=== PATIENT | male | born 1950 | race Asian ===

== ENCOUNTER 2020-02-11 12:43 | Day surgery (SDC) | payer BC, SELFPAY ==
--- NOTE | 2020-02-08 13:28 | P.CONAN_ITS ---
Documented by User: Dunia Adam 02/08/20 13:34 HPI - Anesthesia Eval Consult details Narrative: 70yo M for Colonoscopy: screening [facility] Past Medical History Medical History (Updated 02/11/20 @ 13:34 by Letty Mcmillan, RN) Asthma Diabetes mellitus Elevated cholesterol Environmental allergies Fatty liver Liver hemangioma Renal stones Surgical History Surgical History (Updated 02/11/20 @ 13:33 by Letty Mcmillan, RN) H/O oral surgery Hx of colonoscopy Social History Social History Smoking Status: Never smoker Second Hand Smoke Exposure: No Use of substances other than those prescribed or required for medical reasons: No Advance Directives: No Advance Directives Information Provided: Yes Advance Directives on File: No Meds Allergies Allergy/AdvReac Type Severity Reaction Status Date / Time aspirin Allergy Hives Verified 02/11/20 13:21 Sulfa (Sulfonamide Allergy unknown Verified 02/08/20 15:00 Antibiotics) Home Medications Medication Instructions Recorded Confirmed Type aspirin [Aspir-Low] 81 mg PO DAILY 02/08/20 02/08/20 History atorvastatin 1 tab PO DAILY 02/08/20 02/08/20 History metformin 1 tab PO DAILY 02/08/20 02/08/20 History montelukast 1 tab PO DAILY 02/08/20 02/08/20 History multivitamin 1 02/08/20 History CoQ-10 PO DAILY 02/11/20 History Vitamin D3 PO DAILY 02/11/20 History calcium 600 mg PO DAILY 02/11/20 02/11/20 History Exam Exam Date and Time: February 08, 2020 1328 Assessment and Plan Assessment Anesthesia Assessment: Chart Reviewed Documented by User: John Copeland 02/11/20 14:33 [facility] Past Medical History Medical History (Updated 02/11/20 @ 13:34 by Letty Mcmillan, RN) Asthma Diabetes mellitus Elevated cholesterol Environmental allergies Fatty liver Liver hemangioma Renal stones Surgical History Surgical History (Updated 02/11/20 @ 13:33 by Letty Mcmillan, RN) H/O oral surgery Hx of colonoscopy Social History Social History Smoking Status: Never smoker Second Hand Smoke Exposure: No Use of substances other than those prescribed or required for medical reasons: No Advance Directives: No Advance Directives Information Provided: Yes Advance Directives on File: No Meds Allergies Allergy/AdvReac Type Severity Reaction Status Date / Time aspirin Allergy Hives Verified 02/11/20 13:21 Sulfa (Sulfonamide Allergy unknown Verified 02/08/20 15:00 Antibiotics) Home Medications Medication Instructions Recorded Confirmed Type aspirin [Aspir-Low] 81 mg PO DAILY 02/08/20 02/08/20 History atorvastatin 1 tab PO DAILY 02/08/20 02/08/20 History metformin 1 tab PO DAILY 02/08/20 02/08/20 History montelukast 1 tab PO DAILY 02/08/20 02/08/20 History multivitamin 1 02/08/20 History CoQ-10 PO DAILY 02/11/20 History Vitamin D3 PO DAILY 02/11/20 History calcium 600 mg PO DAILY 02/11/20 02/11/20 History Exam Airway Mallampati Class: II TM Dist: >3cm Neck ROM: Full Partial: Lower Heart: RRR Assessment and Plan Assessment Anesthesia Assessment: Anesthesia Plan Discussed Final Anesthetic Review NPO: Yes ASA Class: III Final Preanesthetic Review: Consent Obtained/Reviewed Anesthetic Plan Anesthetic Plan: MAC: Disposition: Standard PACU
[2020-02-08 15:01] VITALS: BMI 26.6
[2020-02-11 13:22] VITALS: BP 129/72; PULSE 75; RESP 16; TEMP 36.3; O2SAT 99
[2020-02-11 13:36] LABS: Glucose, Whole Blood 112 mg/dL (60-115)
[2020-02-11] MEDS: Lactated Ringers 1,000 ML 100 ML IVCONT (13:41)
[2020-02-11] MEDS: Sodium Phosphate,Mono-Dibasic 133 ML ENEMA PR (13:44)
[2020-02-11 15:22] VITALS: BP 94/61; PULSE 66; RESP 18; TEMP 36.1; O2SAT 96
--- NOTE | 2020-02-11 15:24 | PM.OP ---
Brief Operative Note Date of procedure: 02/11/20 Pre-op diagnosis: Screening Post-op diagnosis: other (Colon polyp) Procedure: Colonoscopy to cecum and TI with biopsy and removal of polyp Surgeon: Bryan Viera Anesthesia: MAC Estimated blood loss (mL): 3.0 Pathology: other (A. Colon polyp at 60cm) Condition: stable Disposition: PACU
[2020-02-11 15:37] VITALS: BP 102/66; PULSE 61; RESP 18; O2SAT 98
[2020-02-11 15:52] VITALS: BP 119/77; PULSE 66; RESP 18; O2SAT 99
[2020-02-11 16:10] VITALS: BP 122/68; PULSE 63; RESP 18; TEMP 36.3; O2SAT 99
--- NOTE | 2020-02-11 21:56 | OP_ITS ---
SURGEON: Bryan Viera MD INDICATIONS: The patient presents for evaluation of colorectal cancer screening and personal history of tubular adenoma of the colon. Full consent has been obtained from him for this, including risks of bleeding and perforation. PREOPERATIVE DIAGNOSIS: POSTOPERATIVE DIAGNOSIS: PROCEDURE PERFORMED: Colonoscopy to cecum with biopsy and removal of polyp. ESTIMATED BLOOD LOSS: COMPLICATIONS: ANESTHESIA: Monitored anesthesia care. ASSISTANTS: SPECIMENS: PREOPERATIVE DIAGNOSES: Colorectal cancer screening and personal history of tubular adenoma of the colon. POSTOPERATIVE DIAGNOSES: Colorectal cancer screening and personal history of tubular adenoma of the colon, colon polyp, diverticulosis and internal hemorrhoids. DESCRIPTION OF PROCEDURE: The patient was placed in the left lateral decubitus position. The digital rectal exam revealed no abnormalities. The Olympus video pediatric colonoscope was entered into the rectum and advanced easily to the cecum. Once in the cecum, I did identify normal-appearing cecal pouch with appendiceal orifice and a normal-appearing ileocecal valve. The terminal ileum was cannulated and appeared normal. The scope was withdrawn back in the colon. The entire cecum and ileocecal valve appeared normal. The scope was slowly withdrawn assessing all mucosal surfaces carefully. Preparation was excellent. At 60 cm, there was an approximately 3 mm polyp, which was biopsied and completely removed with cold biopsy forceps. I did not visualize any other polyps, colitis, nor angiodysplasia. There was a mild amount of sigmoid diverticulosis. In the rectum, scope was retroflexed visualizing small internal hemorrhoids, but no other pathology. The rectal mucosa appeared normal. The scope was straightened out and withdrawn from the patient. He tolerated the procedure well and was returned to the recovery area in stable condition. IMPRESSION: 1. Colon polyp, status post biopsy and removal. 2. Diverticulosis. 3. Internal hemorrhoids. PLAN: The results of the biopsy will be checked. I would recommend a repeat colonoscopy in 5 years for further screening. He will otherwise see me on a p.r.n. basis. He was advised not to use any aspirin nor NSAIDs for 1 week. This has been discussed with his . MD GLENN Coley/LATIA / [phone]
== END 2020-02-11 16:35 | disposition home or self-care (01) ==
PROVIDERS: Visit Provider Internal Medicine
PROC: 0DJD8ZZ Inspection of Lower Intestinal Tract, Via Natural or Artificial Opening Endoscopic (ICD-10-PCS; CPT 45378; principal; 2020-02-11 14:10)
DX: Z12.11 Encounter for screening for malignant neoplasm of colon (principal); Z86.010 Personal history of colon polyps; D12.4 Benign neoplasm of descending colon; K57.30 Diverticulosis of large intestine without perforation or abscess without bleeding; K64.8 Other hemorrhoids; E11.9 Type 2 diabetes mellitus without complications; J45.909 Unspecified asthma, uncomplicated; E78.00 Pure hypercholesterolemia, unspecified; Z79.82 Long term (current) use of aspirin; Z79.84 Long term (current) use of oral hypoglycemic drugs; Z79.899 Other long term (current) drug therapy; Z88.0 Allergy status to penicillin
CPT/HCPCS: 45380; 82947; 88305